=== PATIENT | female | born 1930 | race Caucasian/White ===

== ENCOUNTER 2016-08-23 13:43 | Observation (INO) | payer MEDICARE, BC ==
[~2016-08-23] VITALS: Ht 157.5 cm; Wt 64.8 kg
[~2016-08-23 13:43] MED LIST changes: -AMBIEN5 MG PO; -VASOTEC5 MG PO
[2016-08-23 15:05] LABS: INR - (THERAPEUTIC) 0.96 (0.92-1.07); PROTIME 10.1 SECONDS (9.8-11.4)
[2016-08-23] MEDS ORDERED: AMBIEN5 MG PO (19:40)
--- NOTE | 2016-08-24 04:48 | NUR ---
Patient alert and oriented x3, very pleasant and cooperative, admitted for HTN last BP at 0300 was 117/59, taking Narco for back pain was supposed to have a kyphoplasty done yesterday due to fracture of the L1 however was not performed due to the HTN, has a back brace, also has a fracture left clavical with an immobilizer in place to the left arm, transfers and ambulates well one assist, csm with in normal limits.
--- NOTE | 2016-08-24 07:06 | NUR ---
BACKLOG 08/23/16 1600 PT WAS RADIOLOGY ADMIT TO 1039 FOR PLANNED KYPHOPLASTY PER DR. DEVINE. UPON ARRIVAL WAS NOTED TO HAVE SUSTOLIC BP >200. REPORTED PAIN IN LOW BACK WHICH LESSENED AFTER RESTING IN BED FOR A FEW MINUTES. BP REMAINED ELEVATED, Roshan ROJO CRNA, IN TO EVALUATE PATIENT. WAS GIVEN FENTANYL 25MCG IV FOR BACK PAIN, WITH RELIEF. WAS GIVEN APRESOLINE 5MG X2 WITH BP BRIEFLY DECREASING, BUT DID NOT DECREASE BELOW 180'S. DR. DEVINE IN TO TALK WITH PATIENT AFTER SPEAKING WITH Shalom ROJO, AND PROCEDURE CANCELLED DUE TO ELEVATED BP. DR DEVINE SPOKE AT LENGTH WITH PATIENT AND FAMILY REGARDING NEED TO TREAT BP PRIOR, PT AND FAMILY AGREEABLE. TRANSFERRED TO [facility], REPORT TO Batsheva CONN RN
--- NOTE | 2016-08-24 09:25 | NUR ---
Introduced self/role to patient, her daughter and son-in-law. Plan is home. Has two daughters, 2 [id number] and a neighbor who works for [employer] that will be around to assist her. Denied any needs for DME. Unsure yet if she will have surgery or not. Added my name to her marker board.
[2016-08-24] MEDS ORDERED: VASOTEC5 MG PO (15:33)
--- NOTE | 2016-08-24 17:21 | NUR ---
PT GIVEN DISCHARGE INSTRUCTIONS AND VOICES UNDERSTANDING OF INSTRUCTIONS. BOBBY AND BRYCE AT PT'S SIDE. PT ESCORTED TO THE FRONT DOOR BY THIS NURSE. DAUGHTER AT PT'S SIDE.
== END 2016-08-24 15:30 | disposition disaster alternative care site (69) ==
LOC: GOPD 13:43 → G3N 17:40 → GOPD 08-24 → G3N 08-24 15:30
PROVIDERS: ADMIT Neurological Surgery
DX: S32.010A Wedge compression fracture of first lumbar vertebra, initial encounter for closed fracture (principal); I16.9 Hypertensive crisis, unspecified; Z88.0 Allergy status to penicillin; Z98.49 Cataract extraction status, unspecified eye; Z90.49 Acquired absence of other specified parts of digestive tract; Z95.0 Presence of cardiac pacemaker; Z98.890 Other specified postprocedural states; W19.XXXA Unspecified fall, initial encounter
CPT/HCPCS: G0378; J0360; J0690; J1956; J2270; J3010; J7030

== ENCOUNTER → 2016-08-23 | Outpatient (CLI) | payer MEDICARE, BC ==
[~2016-08-23] MED LIST: AMBIEN5 MG PO; ASPIRIN LO-DOSE81 MG PO; BYSTOLIC10 MG PO; CALCIUM + VITA1 EACH PO; FISH OIL 1,0001 EAC1 PO; K-TAB 10MEQ10 MEQ PO; LASIX40 MG PO; LEVOTHROID (SY88 MCG PO; LIPITOR20 M1 PO; MOTRIN600 MG PO; NORCO 5-325 TA1 EACH PO; THERA-VITE W/ B1 TAB PO; TYLENOL EXTRA500 MG PO; VASOTEC5 MG PO; VITAMIN E400 UNI2 PO
[2016-08-23 11:48] LABS: INR - (THERAPEUTIC) 0.95 (0.92-1.07)
== END | disposition disaster alternative care site (69) ==
LOC: LGSMG 11:29
PROVIDERS: Neurological Surgery
DX: M54.9 Dorsalgia, unspecified (principal)

== ENCOUNTER → 2016-08-27 | Outpatient (CLI) | payer MEDICARE, BC ==
[~2016-08-27] MED LIST changes: +AMBIEN5 MG PO; +VASOTEC5 MG PO
== END | disposition disaster alternative care site (69) ==
LOC: GOPD
PROC: 0QS03ZZ Reposition Lumbar Vertebra, Percutaneous Approach (ICD-10-PCS; principal; 2016-08-27)
PROC: 0QU03JZ Supplement Lumbar Vertebra with Synthetic Substitute, Percutaneous Approach (ICD-10-PCS; 2016-08-27)
DX: M54.9 Dorsalgia, unspecified (principal); M48.56XA Collapsed vertebra, not elsewhere classified, lumbar region, initial encounter for fracture
CPT/HCPCS: C1713; J0690; J7030